=== PATIENT | female | born 1990 | race Caucasian/White ===

== ENCOUNTER 2017-02-05 11:52 | Emergency (ER) | payer MEDICARE ==
[2017-02-05 13:08] LABS: HEMOGLOBIN 11.1 gm/dl (12.3-15.3); RED BLOOD COUNT 3.64 M/UL (4.00-5.10); WHITE BLOOD COUNT 7.2 K/UL (4.5-11.0)
[2017-02-05 13:25] LABS: BUN/CREATININE RATIO 12 (0-10)
[2017-02-11] MEDS ORDERED: TYLENOL W/CODEIN1 E1 PO (06:42)
[2017-02-11] MEDS ORDERED: NORCO 5-325 TA1 EACH PO (10:15)
== END 2017-02-05 14:48 | disposition home or self-care (01) ==
LOC: ER1 11:52
PROVIDERS: Nurse Practitioner Family
DX: K81.0 Acute cholecystitis (principal); F17.200 Nicotine dependence, unspecified, uncomplicated
CPT/HCPCS: 36415; 80053; 81001; 82150; 83605; 83690; 84703; 85025; 87086; 96361; 96374; 96375; 99284; J1335; J2270; J2405; J7030; J7050; Q9962

== ENCOUNTER → 2017-02-11 | Day surgery (SDC) | payer MEDICARE ==
[~2017-02-11] MED LIST: NORCO 5-325 TA1 EACH PO; TYLENOL W/CODEIN1 E1 PO
== END | disposition home or self-care (01) ==
LOC: OR 06:07
PROVIDERS: Surgery
PROC: 0FT44ZZ Resection of Gallbladder, Percutaneous Endoscopic Approach (ICD-10-PCS; principal; 2017-02-11 13:00)
DX: K80.10 Calculus of gallbladder with chronic cholecystitis without obstruction (principal); F17.210 Nicotine dependence, cigarettes, uncomplicated; Z79.2 Long term (current) use of antibiotics
CPT/HCPCS: 84703; J0295; J1100; J2250; J2405; J2710; J3010; J7030; J7050; J7120; Q9962

== ENCOUNTER 2022-04-27 20:01 | Emergency (ER) | payer OTHER | END 2022-04-27 21:36 | disposition home or self-care (01) | LOC: ER1 20:01 | DX: K05.219 Aggressive periodontitis, localized, unspecified severity (principal) | CPT/HCPCS: 41800; 96374; 99282; J0561 ==